=== PATIENT | male | born 1980 | race Caucasian/White ===

== ENCOUNTER 2018-07-24 11:06 | Emergency (ER) | payer SELFPAY ==
[2018-07-24 12:10] VITALS: BP 100/69
--- NOTE | 2018-07-24 13:20 | ED ---
Skin Complaint - HPI Summary HPI Summary: patient is a 37-year-old male presenting to the ED with diffuse poison oak. He states he was weed eating and mowing 2 days ago and immediately following developed diffuse erythematous areas with some vesicles, raised blisters which are pruritic and slightly painful. He denies any fevers, sweats, chills. He has never had poison oak or poison ar in the past. Small areas of blisters throughout the bilateral hands and forearms, abdomen area, lower extremities from the knees to the feet and small amount of blisters to the groin. Patient states this is pruritic, but rates this as 2/10. Painful at 3/10. Currently on Suboxone. Patient has taken an [id number] poison oak cream with mild relief. - History of Current Complaint Chief Complaint: EDRashSkinAbscess Time Seen by Provider: 07/24/18 11:25 Stated Complaint: POISON AR FROM HEAD TO TOE PER PT Hx Obtained From: Patient Onset/Duration: Started Hours Ago Skin Exposure Onset/Duration: Hours Ago Timing: Constant Onset Severity: Severe Current Severity: Severe Pain Intensity: 6 Pain Scale Used: 0-10 Numeric Skin Location: Diffuse Character: Swelling, Pruritus, Hives, Redness, Raised, Painful Aggravating Symptom(s): Touch Alleviating Symptom(s): Nothing Related History: Possible Reaction to: Environmental Exposure - Allergy/Home Medications Allergies/Adverse Reactions: Allergies Allergy/AdvReac Type Severity Reaction Status Date / Time No Known Allergies Allergy Verified 07/01/14 12:41 Home Medications: Home Medications Buprenorp/Nalox 8-2 MG FILM [Suboxone 8 mg-2 mg Sl Film] 2 film SL DAILY [History Confirmed 07/24/18] PMH/Surg Hx/FS Hx/Imm Hx Previously Healthy: Yes Endocrine/Hematology History: Denies: Hx Diabetes Cardiovascular History: Denies: Hx Congestive Heart Failure, Hx Hypertension History: Denies: Hx Dialysis, Hx Renal Disease - Immunization History Date of Tetanus Vaccine: 2012 Hx Pertussis Vaccination: No Immunizations Up to Date: Yes Infectious Disease History: No Infectious Disease History: Denies: Traveled Outside the [place] in Last 30 Days - Social History Occupation: Employed Full-time Lives: With Family Alcohol Use: None Alcohol Amount: clean since 2012 Hx Substance Use: No Substance Use Type: Reports: None Smoking Status (MU): Light Every Day Tobacco Smoker Review of Systems Constitutional: Negative Negative: Fever, Chills, Fatigue, Skin Diaphoresis Negative: Epistaxis, Dental Pain Negative: Palpitations Negative: Abdominal Pain, Vomiting, Diarrhea, Nausea Genitourinary: Negative Positive: no symptoms reported, see HPI Negative: Arthralgia, Myalgia Positive: Other - diffuse pruritic rash with blisters and vesicles, see history of present illness Neurological: Negative All Other Systems Reviewed And Are Negative: Yes Physical Exam Triage Information Reviewed: Yes Vital Signs On Initial Exam: Initial Vitals Temp Pulse Resp BP Pulse Ox 98.3 F 99 18 110/80 94 07/24/18 11:10 07/24/18 11:10 07/24/18 11:10 07/24/18 11:10 07/24/18 11:10 Vital Signs Reviewed: Yes Appearance: Positive: Well-Appearing, Well-Nourished Skin: Positive: Skin Color Reflects Adequate Perfusion, Weeping Skin/Lesions - Blisters small vesicles to the groin, bilateral hands and forearms, bilateral lower extremities from the knees to the ankles Eyes: Positive: EOMI, Conjunctiva Clear Neck: Positive: Supple, No Lymphadenopathy Respiratory/Lung Sounds: Positive: Clear to Auscultation, Breath Sounds Present Cardiovascular: Positive: RRR, Pulses are Symmetrical in both Upper and Lower Extremities Musculoskeletal: Positive: Strength/ROM Intact Neurological: Positive: Speech Normal Psychiatric: Positive: Affect/Mood Appropriate Diagnostics - Vital Signs Vital Signs Temp Pulse Resp BP Pulse Ox 07/24/18 12:03 98.9 F 104 20 100/69 95 07/24/18 11:10 98.3 F 99 18 110/80 94 - Laboratory Lab Statement: Any lab studies that have been ordered have been reviewed, and results considered in the medical decision making process. Course/Dx - Course Course Of Treatment: On physical examination, there are small vesicles and blisters throughout the bilateral hands and forearms with erythema surrounding. Also noted are blisters to the groin area and lower extremities from the knees to the feet bilaterally. Patient has been using an [id number] poison oak cream without relief. There are no signs of infection otherwise. However, this appears to be severe infection of poison oak and patient is given Keflex, triamcinolone, clobetasol and prednisone for relief. Patient will follow up with PCP for any worsening or changing symptoms. He understands other management strategies over the counter. - Differential Diagnoses - Skin Complaint Differential Diagnoses: Other - Poison ar, poison oak dermatitis, dermatitis, cellulitis - Diagnoses Provider Diagnoses: Poison oak Discharge - Sign-Out/Discharge Documenting (check all that apply): Patient Departure Patient Received Moderate/Deep Sedation with Procedure: No - Discharge Plan Condition: Stable Disposition: HOME Prescriptions: Cephalexin CAP* [Keflex CAP*] 500 mg PO BID #14 cap MDD 2 Clobetasol 0.05% OINT* 1 applic TOPICAL BID #1 tube predniSONE TAB* [Deltasone TAB*] 50 mg PO DAILY #6 tab MDD 1 Triamcinolone 0.5% CREAM(NF) [Triamcinolone 0.5% CREAM*] 1 applic TOPICAL BID # 2 tube Patient Education Materials: Poison Ar (ED), Cold Compress or Soak (ED) Referrals: No Primary Care Phys,NOPCP [Primary Care Provider] - Additional Instructions: Please apply triamcinolone cream once to twice daily Use the clobetasol cream once daily On opposite schedule, you may also use soothing cream such as calamine lotion Her improvement, he may also use gauze wraps around the calamine lotion to keep the moist in Keflex twice daily x 7 days Prednisone once daily x 6 days - take this in the AM Oatmeal baths An over the counter antihistamine (such as claritin or lorie or bendaryl) could help with any itching - Billing Disposition and Condition Condition: STABLE Disposition: Home
== END 2018-07-24 12:03 | disposition home or self-care (01) ==
LOC: ED 11:06
DX: L23.7 Allergic contact dermatitis due to plants, except food (principal); F17.210 Nicotine dependence, cigarettes, uncomplicated
CPT/HCPCS: 99282